=== PATIENT | female | born 1980 ===

== ENCOUNTER 2018-01-22 13:48 | Outpatient (CLI) | payer OTHER | END 2018-01-22 13:49 | disposition home or self-care (01) | LOC: LAB 13:48 | DX: R50.9 Fever, unspecified (principal); J11.1 Influenza due to unidentified influenza virus with other respiratory manifestations ==

== ENCOUNTER → 2018-01-22 | Outpatient (CLI) | payer OTHER ==
[~2018-01-22] VITALS: Ht 152.4 cm; Wt 92.5 kg
[~2018-01-22] MED LIST: TOBREX5 ML OP; ZYRTEC10 MG PO
== END | disposition home or self-care (01) ==
LOC: PPHC 12:50
DX: B34.9 Viral infection, unspecified (principal)

== ENCOUNTER → 2018-01-28 | Outpatient (CLI) | payer OTHER ==
[~2018-01-28] VITALS: Ht 152.4 cm; Wt 88.0 kg
== END | disposition home or self-care (01) ==
LOC: PPHC 12:14
DX: Z02.79 Encounter for issue of other medical certificate (principal)

== ENCOUNTER 2018-08-20 15:43 | Emergency (ER) | payer OTHER ==
[~2018-08-20] VITALS: Ht 162.6 cm; Wt 97.5 kg
== END 2018-08-20 17:22 | disposition home or self-care (01) ==
LOC: ER 15:43
DX: S61.412A Laceration without foreign body of left hand, initial encounter (principal); W45.8XXA Other foreign body or object entering through skin, initial encounter; Y93.89 Activity, other specified; Y92.69 Other specified industrial and construction area as the place of occurrence of the external cause; Y99.8 Other external cause status

== ENCOUNTER 2019-09-01 11:34 | Outpatient (CLI) | payer OTHER | END 2019-09-01 18:34 | disposition home or self-care (01) | LOC: LAB 11:34 | DX: J11.1 Influenza due to unidentified influenza virus with other respiratory manifestations (principal) ==